=== PATIENT | male | born 1945 | race Caucasian/White ===

== ENCOUNTER 2017-02-02 02:44 | Emergency (ER) | payer MEDICARE, BC ==
--- NOTE | ~2017-02-02 | EKG ---
PATIENT: ALFONZO GAYLE UNIT #: [id number] Ventricular Rate: 91 BPM Atrial Rate: 91 BPM P-R Interval: 164 ms QRS Duration: 100 ms Q-T Interval: 384 ms QTC Calculation(Bezet): 472 ms P [place]: 74 degrees Calculated R [place]: 74 degrees Calculated T [place]: 145 degrees Diagnosis Line: Sinus rhythm with frequent Premature ventricular Diagnosis Line: complexes Diagnosis Line: T wave abnormality, consider inferolateral Diagnosis Line: ischemia Diagnosis Line: Prolonged QT Diagnosis Line: Abnormal ECG Diagnosis Line: No previous ECGs available Diagnosis Line: Confirmed by ZULEMA GAMBOA MD ([id number]) on 02/02/2017 Diagnosis Line: 9:43:37 AM INTERPRETING MD: COOPER MATTA
--- NOTE | ~2017-02-02 | CR72 ---
[facility] A Service of [facility] RADIOLOGY TEXT RESULTS PATIENT: ALFONZO GAYLE LOCATION: [facility] : 47 UNIT #: [id number] AGE: [address]: Marcus Espitia MD SEX: M ORDER DR: [id number] [facility] [address] [facility]. [place], [place] [address] [id number] MR#: [id number] #: [id number] NAME: ALFONZO GAYLE. : 1945 SEX: M STUDY DATE/TIME: 02/02/2017 2:32 UNIT: [facility] ROOM: STUDY DESCRIPTION: CR Chest Single View Portable Attending Physician: Marcus Espitia M.D. Ordering Physician: Marcus Espitia M.D. Primary Care Physician: Abel Yip M.D. MEDICAL IMAGING REPORT This report is preliminary unless electronic signature is present EXAM AP portable chest. DATE 02/02/2017 HISTORY 71-year-old male with shortness breath for 1 day. Previous history of lung surgery. CABG. COMPARISON AP portable chest, 02/09/2016. FINDINGS Chronic volume loss right in the right hemithorax. Chronic blunting of the right costophrenic angle may represent pleural change or small pleural effusion. Stable asymmetric elevation right hemidiaphragm. Heart size is mildly enlarged but stable with signs of median sternotomy and CABG. Old left sixth rib fracture. Suspected mild peribronchiolar opacities in the bilateral lower lung zones may represent changes of small airways infectious-inflammatory process. IMPRESSION 1. Peribronchiolar opacities and peribronchiolar thickening in the lower lung zones may represent changes of small airways infectious-inflammatory process. No dense lung consolidations are identified. 2. Chronic volume loss in the right hemithorax unchanged. 3. Stable cardiomegaly with CABG. Dictated by... [facility] A Service of [facility] RADIOLOGY TEXT RESULTS PATIENT: ALFONZO GAYLE LOCATION: [facility] : 46 UNIT #: [id number] AGE: [address]: Marcus Espitia MD SEX: M ORDER DR: Cari Miranda M.D. THIS IS AN ELECTRONICALLY VERIFIED REPORT Cari Miranda M.D. at 02/02/2017 10:04 PM KE/franck TD: 02/02/2017 09:32 JOB #: [id number] MEDICAL IMAGING REPORT Page 1 of 1 COPY
[2017-02-02 02:20] LABS: BASOPHIL# 0.1 X10e3 (0-0.3); BASOPHIL% 0.7 % (0-2.5); DIFF IND NO; EOSINOPHIL# 0.4 X10e3 (0-0.7); EOSINOPHIL% 3.8 % (0.0-7.0); HEMATOCRIT 35.2 % (38.0-50.0); HEMOGLOBIN 11.6 gm/dL (13.0-16.0); LYMPHOCYTE# 1.7 X10e3 (1.0-3.5); LYMPHOCYTE% 14.6 % (17.0-45.0); MEAN CELL VOLUME 86.4 FL (83-96); MEAN CORPUSCULAR HEMOGLOBIN 28.5 PG (28-34); MEAN PLATELET VOLUME 7.6 FL (6.5-11.5); MONOCYTE# 0.7 X10e3 (0-1.0); MONOCYTE% 6.1 % (3.0-12.0); NEUTROPHIL# 8.6 X10e3 (1.5-7.1); NEUTROPHIL% 74.8 % (40-75); PLATELET COUNT 356 X10e3 (140-420); RED BLOOD COUNT 4.07 X10e (3.90-5.60); WHITE BLOOD COUNT 11.5 X10e3 (4.0-10.5)
[2017-02-02 02:26] LABS: POC - CKMB 1.4 ng/mL (0.0-7.9); POC - TROPONIN <0.05 ng/mL (<=0.05)
[2017-02-02 02:40] LABS: ALBUMIN SERUM 3.1 g/dL (3.5-5.0); BILIRUBIN, DIRECT 0.1 mg/dL (0.0-0.2); BILIRUBIN,INDIRECT 0.4 mg/dL (0.0-0.9); BILIRUBIN,TOTAL 0.5 mg/dL (0.2-2.0); BUN/CREATININE RATIO 9.23; CALCIUM SERUM 8.3 mg/dL (8.4-10.2); CREATININE SERUM 1.3 mg/dL (0.6-1.4); GLOM FILT RATE Estimated 55.3 mL/min (>60); POTASSIUM 3.2 mmol/L (3.5-5.1); PROTEIN TOTAL SERUM 6.8 g/dL (6.0-8.3)
[~2017-02-02 02:44] MED LIST: AMBIEN; AMLODIPINE BESYL5 MG PO; APRESOLINE PO; ASPIRIN PO; ASPIRIN81 MG PO; ASPIRINBUFF PO; ASTEPRO205.5 MCG/ NS; ATENOLOL PO; BREO ELLIPTA I1 EACH IH; BUSPAR15 M1 PO; BUSPAR15 M2 PO; BUSPAR15 M3 PO; CARDURA2 MG PO; CLONIDINE HCL0.1 MG PO; CLOPIDOGREL BIS75 MG PO; CLOPIDOGREL75 MG PO; CO Q10 PO; COLACE PO; COMPLETE ALLERG50 MG PO; DEXAMETHASONE1 MG PO; DRONABINOL2.5 MG PO; DULCOLAX5 MG RC; FISH OIL 1,2001 CAP PO; FLOMAX0.4 M1 PO; FLONASE 0.05% N16 G1; FLONASE ALLERG9.9 ML; FUROSEMIDE40 MG PO; HUMIBID-LA600 MG; HYDRALAZINE HC100 MG PO; HYDROCHLOROTHIA25 MG PO; IMDUR PO; LASIX20 MG PO; LIPITOR40 MG PO; LIPITOR80 MG PO; LISINOPRIL PO; LOPRESSOR PO; LOW DOSE ASPIRI81 M1 PO; LUNESTA PO; LUTEIN PO; LUTEIN20 M1 PO; LUTEIN20 MG PO; METOPROLOL SUC100 MG PO; METOPROLOL TAR25 MG PO; MIRTAZAPINE7.5 MG PO; NASONEX17 GM; NEXIUM PO; NITROGLYCERIN; NITROGYLCERIN SUBLINGUAL; NITROLINGUAL12 G1; NORVASC PO; PERFOROMIS20 MCG/2 M NEB; PLAVIX PO; PROTONIX PO; PROVENTIL INH0.5 ML HHN; PULMICORT0.5 MG/2 M NEB; QUETIAPINE FUMA50 MG PO; RELAFEN500 MG PO; REMERON15 MG PO; SIMVASTATIN20 MG PO; STAHIST TA1 TAB.SR . PO; SUDOGEST60 MG PO; TEMAZEPAM30 MG PO; TOPROL XL PO; TRAZODONE PO; TYLENOL325 M1 PO; VISTARIL PO; VITAL-D RX TABL1 TAB PO; VITAMIN D31000 UNIT PO; ZOCOR PO; ZYRTEC PO; [UNRECOGNIZED DRUG - OTHER] SL
[2017-02-02] MEDS ORDERED: LORCET 5-325 M1 EACH PO (02:45)
== END 2017-02-02 03:21 | disposition home or self-care (01) ==
LOC: CED 02:44
PROVIDERS: Emergency Medicine
DX: J44.1 Chronic obstructive pulmonary disease with (acute) exacerbation (principal); J20.9 Acute bronchitis, unspecified; J44.0 Chronic obstructive pulmonary disease with (acute) lower respiratory infection; I13.0 Hypertensive heart and chronic kidney disease with heart failure and stage 1 through stage 4 chronic kidney disease, or unspecified chronic kidney disease; N18.9 Chronic kidney disease, unspecified; I50.9 Heart failure, unspecified; E78.5 Hyperlipidemia, unspecified; F03.90 Unspecified dementia, unspecified severity, without behavioral disturbance, psychotic disturbance, mood disturbance, and anxiety; F32.9 Major depressive disorder, single episode, unspecified; Z95.1 Presence of aortocoronary bypass graft; Z79.82 Long term (current) use of aspirin; Z79.899 Other long term (current) drug therapy
CPT/HCPCS: 36415; 71010; 80048; 80076; 82553; 83880; 84484; 85025; 93005; 94640; 99284

== ENCOUNTER 2017-02-13 07:14 | Inpatient (IN) | payer MEDICARE, BC ==
--- NOTE | ~2017-02-13 | CR72 ---
[facility] A Service of [facility] & [facility] RADIOLOGY TEXT RESULTS PATIENT: ALFONZO GAYLE LOCATION: [facility] 550-01 : 46 UNIT #: [id number] AGE: [address]: ANANDA YUSUF MD SEX: M ORDER DR: [id number] [facility] [address] [facility]. [place], [place] [address] [id number] I MR#: [id number] #: [id number] NAME: ALFONZO GAYLE. : 1945 SEX: M STUDY DATE/TIME: 02/13/2017 8:11 UNIT: [facility] ROOM: [facility] STUDY DESCRIPTION: CR Chest Single View Portable Attending Physician: Ananda Yusuf M.D. Ordering Physician: Jung Gilliland M.D. Primary Care Physician: Abel Yip M.D. MEDICAL IMAGING REPORT This report is preliminary unless electronic signature is present EXAM Portable chest INDICATION Shortness of breath today. Compared with 02/02/2017. FINDINGS Stable postoperative changes of the right lung. Stable right pleural effusion. Stable background interstitial opacities. No new infiltrate. Heart size stable. IMPRESSION No significant change in the appearance of the chest. Stable postoperative changes of the right lung, right pleural effusion and bilateral interstitial opacities. Dictated by... Roger Briggs M.D. THIS IS AN ELECTRONICALLY VERIFIED REPORT Roger Briggs M.D. at 02/14/2017 2:19 PM MELVI/tootie TD: 02/13/2017 22:33 JOB #: [id number] MEDICAL IMAGING REPORT Page 1 of 1 COPY
--- NOTE | ~2017-02-13 | HP ---
Unit #: [id number] #: [id number] Patient: ALFONZO GAYLE [id number] [facility]. [place], [place] [address] [id number] I MR#: [id number] NAME: ALFONZO GAYLE. ROOM: 550 Age: 71 Sex: M Admission Date: 02/13/2017 : 1945 Attending Physician: Mayi Yusuf M.D. Primary Care Physician: Abel Yip M.D. HISTORY AND PHYSICAL REVISED REPORT CHIEF COMPLAINT Shortness of breath. HISTORY OF PRESENT ILLNESS The patient is a 71-year-old male with history of coronary artery disease status post OK 4 years ago, lung cancer and hypertension. Brought to the emergency room with shortness of breath. The patient stated that he had chest pain earlier this morning that lasted 2-3 minutes. The pain was sharp and followed by achiness. That made the patient come to the hospital. The patient was scared that he might have another heart attack. The patient was also found to have shortness of breath and is being admitted for the above reasons. The patient was found to have a blood pressure in the range of 200/82 and started on nitro paste and received labetalol 10 mg IV x1 in the emergency room. The patient is being admitted for the above reasons. PAST MEDICAL HISTORY History of coronary artery disease with previous anterolateral OK in 2008, followed by 2-vessel CABG with an EF of 10% to 15%, hypertension, hyperlipidemia, non-small cell lung cancer status post right VATS, right lower and right middle lobe along with lymph node dissection, hyperlipidemia, history of iron deficiency anemia, COPD, history of chronic kidney disease. ALLERGIES None. HOME MEDICATIONS The patient had been out of medications for a couple of weeks. He is on Metoprolol, Norvasc, aspirin, lutein, Plavix, Seroquel, simvastatin, Flomax, and [place]. FAMILY HISTORY Positive for coronary artery disease. SOCIAL HISTORY The patient lives with his . He stopped smoking in 2009 and does not drink alcohol. REVIEW OF SYSTEMS A 14-point review of systems was performed, and all the pertinent positive findings are as described above. The remaining are negative. Unit #: [id number] #: [id number] Patient: ALFONZO GAYLE PHYSICAL EXAMINATION GENERAL: The patient is lying in the bed, not in acute distress. VITALS: Temperature is 98, pulse 85, respiratory rate 20, blood pressure 200/82, satting 97% on room air. HEENT: Head atraumatic, normocephalic. Pupils are equal, round, reactive to light and accommodation. Extraocular movements are intact. NECK: Supple. LUNGS: Decreased air entry at the bases. HEART: Regular rate and rhythm. Positive for murmur. ABDOMEN: Soft. Positive bowel sounds. EXTREMITIES: No cyanosis. No clubbing. NEUROLOGIC: Alert, awake, oriented. No gross focal motor deficit. DIAGNOSTIC STUDIES IMAGING: Chest x-ray shows no acute changes. LAB DATA: Glucose 92, BUN 14, creatinine 1.1, sodium 136, potassium 3.9, chloride 103, bicarb 25, calcium 8.5, total protein 6.8, albumin 3.1, total bili 0.6, AST 16, ALT 10, alkaline phosphatase 87. CK total is 32, CK-MB is 5, troponin is 0.07. BNP is 784. WBC 10.1, hemoglobin 11.1, hematocrit 34, platelets 355. UA shows 3+ protein. CARDIOVASCULAR: EKG shows sinus rhythm with occasional PVCs, left posterior fascicular block and rate of 87 beats per minute, QTc 486. ASSESSMENT 1. Chest pain. 2. Elevated troponin with non-ST elevation OK. 3. Chronic combined systolic and diastolic heart failure. 4. A fib. PLAN Plan to admit the patient to inpatient. The patient had Lexiscan Cardiolite back in 2014 at [facility] that was negative. Patient will have a cardiology consultation for non-ST elevation OK and chest pain with angina. Resume the Lasix 40 mg and resume the blood pressure medications, Metoprolol, lisinopril, aspirin and Lipitor, and further recommendations to follow as more lab results are available. *REPORT FAXED TO DR. YUSUF'S OFFICE ON 02/14/17 FOR MEDICATION VERIFICATION. CD Dictated by Jabari Villatoro/chio TD: 02/14/2017 07:26 JOB #: [id number] Unit #: [id number] #: [id number] Patient: ALFONZO GAYLE HISTORY AND PHYSICAL Page 1 of 1 X X HISTORY AND PHYSICAL
--- NOTE | ~2017-02-13 | DS ---
Unit #: [id number] #: [id number] Patient: ALFONZO GAYLE [id number] [address] [address] [id number] I MR#: [id number] NAME: ALFONZO GAYLE. ROOM: 550 Age: 71 Sex: M Admission Date: 02/13/2017 : 1945 Discharge Date: Attending Physician: Iram Gunderson M.D. Primary Care Physician: Abel Yip M.D. DISCHARGE SUMMARY DISCHARGE DIAGNOSES 1. Acute on chronic systolic heart failure. 2. Acute kidney injury. 3. Chronic kidney disease, stage 2 likely. 4. Coronary artery disease with multivessel disease status post cardiac cath. 5. Chest pain with ST-T wave changes, likely secondary to left ventricular hypertrophy. 6. Non-ST elevation myocardial infarction. 7. Chronic obstructive pulmonary disease. 8. History of non-small cell lung cancer status post lung surgery. 9. Hyperlipidemia. 10. History of iron deficiency anemia. 11. Ejection fraction 10% to 15%. 12. Hypertension. CONSULTATIONS Dr. Way. PROCEDURES Cardiac cath, which showed multivessel disease. No stents placed. ALLERGIES None. DISCHARGE MEDICATIONS 1. Metoprolol 50 p.o. b.i.d. 2. Lasix 40 daily. 3. Lisinopril 20 daily. 4. Aspirin 81 daily. 5. Spironolactone 25 mg 1/2 tablet p.o. daily. 6. Imdur ER 60 daily. HOSPITALIZATION COURSE A 71 year old admitted because of chest pain. Chest pain. Non-ST elevation AL with LVH and S-T wave changes. The patient had a cardiac cath, which showed multivessel disease. Patient did not have any stents placed. If patient has symptoms like angina, he might be needing stent. Currently patient is on medical management. Continue with aspirin, Lipitor, lisinopril, Metoprolol and Imdur. Acute on chronic systolic heart failure. Patient received IV Lasix. Currently compensated. Continue with p.o. Lasix. Unit #: [id number] #: [id number] Patient: ALFONZO GAYLE Acute kidney injury with a history of chronic kidney disease stage 2 likely. Currently creatinine is 1.7. I am going to decrease his Lasix, spironolactone and lisinopril. He needs to have a BMP checked on 02/21/2017 Follow with PCP with results. I am going to have home health for it. History of lung cancer. Stable. COPD. Stable. History of dementia with behavioral issues in the past. Currently stable. DISCHARGE PLAN 1. The patient's family wants him to go to rehab, but physical therapy saw him and they said currently the patient is baseline, so patient will be going home with home health. 2. Follow with family physician in 1 week. 3. BMP on 02/21/2017. Follow with PCP with results. 4. Discussed with Dr. Way regarding the increasing creatinine. According to him, doses of Lasix, spironolactone and lisinopril to be decreased and BMP to be checked on 02/21/2017 and follow with PCP with results. Patient does not need to be inpatient. NOTE: Discharge time taken is 35 minutes. Dictated by... Iram Gunderson M.D. KASI/chio TD: 02/17/2017 13:59 JOB #: [id number] DISCHARGE SUMMARY Page 1 of 1 X Iram Gunderson MD X DISCHARGE SUMMARY
--- NOTE | ~2017-02-13 | EKG ---
PATIENT: ALFONZO GAYLE UNIT #: [id number] Ventricular Rate: 87 BPM Atrial Rate: 87 BPM P-R Interval: 162 ms QRS Duration: 98 ms Q-T Interval: 404 ms QTC Calculation(Bezet): 486 ms P [place]: 81 degrees Calculated R [place]: 111 degrees Calculated T [place]: -92 degrees Diagnosis Line: Sinus rhythm with occasional Premature ventricular Diagnosis Line: complexes Diagnosis Line: Left posterior fascicular block Diagnosis Line: ST and T wave abnormality, consider inferolateral Diagnosis Line: ischemia Diagnosis Line: Prolonged QT Diagnosis Line: Abnormal ECG Diagnosis Line: When compared with ECG of 02-FEB-2017 02:08, Diagnosis Line: Left posterior fascicular block is now Present Diagnosis Line: T wave inversion more evident in Inferior leads Diagnosis Line: T wave inversion less evident in Lateral leads Diagnosis Line: Confirmed by KATTY CHARLES MD ([id number]) on Diagnosis Line: 02/14/2017 8:36:59 AM INTERPRETING MD: ARACELI MATTA
--- NOTE | ~2017-02-13 | CO ---
Unit #: [id number] #: [id number] Patient: ALFONZO GAYLE [id number] [facility]. [place], [place] [address] [id number] I MR#: [id number] NAME: ALFONZO GAYEL ROOM: 550 Age: 71 Sex: M Admission Date: 02/13/2017 : 1945 Attending Physician: Iram Gunderson M.D. Primary Care Physician: Abel Yip M.D. Consultation Date: 02/13/2017 CONSULTATION REPORT REASON FOR CONSULTATION Shortness of breath. HISTORY OF PRESENT ILLNESS This is a 71-year-old white male, previously known to our group with a past medical history of coronary artery disease with previous myocardial infarction, status post coronary artery bypass grafting x2 vessels in 2008. At that time, the patient's ejection fraction was 10% to 15%. He underwent a 2D echocardiogram in 07/2013, which revealed an improved ejection fraction of 50% to 55%, followed by 2D echocardiogram in 01/2015 with an ejection fraction of 50%. Lexiscan Cardiolite stress test was completed in 01/2015, at [facility], [place] and was normal. Additional past medical history includes hypertension, hyperlipidemia, chronic kidney disease stage 3, COPD, and squamous cell carcinoma status post right lower lobe resection and VATS. The patient was previously admitted to [facility] and was seen by Cardiology in 04/2015 for atrial fibrillation with rapid ventricular response. He presented to the emergency department today with complaints of shortness of breath and anxiety for past one day. He states that he was at home watching TV when he became very short of breath and had some pain in his midsternal chest. The pain was described as shortness and an aching pain. There was some radiation. It was worse with movement. He denies diaphoresis, nausea, or vomiting. Denies dizziness, palpitations, or syncope. There are no reports of lower extremity edema. He did state that he was run out of his medications and has been without all medicines for about 10 days. He said that his stepdaughter works 2 jobs and he did not want to trouble her, and therefore, has not been able to get to the pharmacy. In the emergency department, initial creatinine was 1.1 with a BUN of 14. BNP was 784. Chest x-ray revealed right pleural effusion as well as some vascular congestion. Initial cardiac enzymes were negative. EKG revealed sinus rhythm with T-wave inversion in the inferior and anterolateral leads likely from hypertension. He was admitted for further observation. Cardiology was consulted. The patient is somewhat of a decent historian, but is inconsistent with his story. There is a documented history of dementia. We will attempt to reach his family to discuss plan of care. PAST MEDICAL HISTORY 1. Coronary artery disease, myocardial infarction, status post coronary artery bypass grafting x2 in 2008. Ejection fraction 10% to 15%. 2. 2D echocardiogram on 07/14/2013 revealed impaired LV relaxation. Ejection fraction 50% to 55%. Unit #: [id number] #: [id number] Patient: ALFONZO GAYLE 3. Lexiscan Cardiolite stress test in 01/2015 at [facility] [place] was revealed no ischemia. Ejection fraction 50%. 4. 2D echocardiogram in 01/2015 revealed an ejection fraction of 50%. Mild aortic stenosis. Mild aortic regurgitation. Trace to mild mitral regurgitation. 5. Hypertension. 6. Hyperlipidemia. 7. Chronic kidney disease, stage 3. 8. COPD. 9. Squamous cell carcinoma, status post right lower lobe resection and VATS. 10. Atrial fibrillation with rapid ventricular response diagnosed in 04/2015, now in sinus rhythm. 11. Dementia. 12. Reformed tobacco abuse. PAST SURGICAL HISTORY 1. Coronary artery bypass grafting. 2. Cardiac catheterization. 3. Cataract extraction. 4. VATS and right lower lobe lung resection. HOME MEDICATIONS The patient has been off all medications for the last 10 days due to running out of his prescriptions. ALLERGIES No known drug allergies. SOCIAL HISTORY The patient lives in a private residence. He is a reformed smoker. There are no reports of alcohol or illicit drug use. FAMILY HISTORY Contributory for heart disease. REVIEW OF SYSTEMS Ten-point review of systems negative except for details noted above in HPI. PHYSICAL EXAMINATION VITAL SIGNS: Temperature 98, pulse 97, blood pressure 171/92. CONSTITUTIONAL: This is a 71-year-old white male, in no acute distress. SKIN: Warm and dry. NECK: Supple. No jugular vein distention. No hepatojugular reflux. Normal carotid upstrokes. No carotid bruits auscultated. HEART: S1 and S2. Regular rate and rhythm. No murmurs, rubs, or gallops. LUNGS: There are fine rales in the left lung. Decreased breath sounds in the right base. Respirations are even and nonlabored. ABDOMEN: Soft, nontender, and nondistended. Positive bowel sounds auscultated x4 quadrants. No ascites noted. EXTREMITIES: Bilateral lower extremities have trace pretibial pitting edema. DP and PT pulses are 2+. Capillary refill is less than 2 seconds. DIAGNOSTIC STUDIES LABORATORY RESULTS: White blood cell count 10.1, hemoglobin 11.1, hematocrit 34, platelets 355. Sodium 136, potassium 3.9, chloride 103, CO2 of 25, BUN 14, creatinine 1.1, glucose 92. AST 16, ALT 10, alkaline Unit #: [id number] #: [id number] Patient: ALFONZO GAYLE phosphatase 87. BNP 784. Troponin 0.05. Urinalysis with 3+ protein. IMAGING STUDIES: Chest x-ray reveals atelectasis with possible right pleural effusion. Vascular congestion. CT of the head reveals no acute findings. CARDIOVASCULAR STUDIES: EKG reveals sinus rhythm with T-wave inversion in the inferior and anterolateral leads. QTc 486 msec. IMPRESSION 1. Acute on chronic diastolic congestive heart failure with an ejection fraction of 50% in 01/2015. 2. Squamous cell carcinoma, status post video-assisted thoracic surgery and right lower lobe lung resection. 3. Coronary artery disease with history of coronary artery bypass grafting in 2008. 4. History of ischemic cardiomyopathy, now improved. 5. Hypertension. 6. Hyperlipidemia. 7. Chronic obstructive pulmonary disease. 8. Chronic kidney disease, stage 3. 9. Dementia. 10. History of atrial fibrillation with rapid ventricular response, now sinus rhythm. 11. Medical non-adherence. PLAN 1. The patient will be admitted to the hospital for further observation. 2. We will restart Lasix, lisinopril, aspirin, and statin. 3. We will check a TSH and fasting lipid profile. 4. The patient was started on fluid restriction, strict intake and output. 5. He admits to some chest pain. EKG is nonacute. We will trend EKG and cardiac enzymes. Dictated by... Génesis Salvador APRN for Jabari Pretty/kelvin TD: 02/15/2017 01:14 JOB #: [id number] CONSULTATION REPORT Page 1 of 1 X X CONSULTATION REPORT
[~2017-02-13 07:14] MED LIST changes: +LORCET 5-325 M1 EACH PO
[2017-02-13 08:15] LABS: POC - TROPONIN <0.05 ng/mL (<=0.05)
[2017-02-13 08:21] LABS: BASOPHIL# 0.1 X10e3 (0-0.3); DIFF IND NO; EOSINOPHIL# 0.4 X10e3 (0-0.7); EOSINOPHIL% 3.8 % (0.0-7.0); HEMOGLOBIN 11.1 gm/dL (13.0-16.0); LYMPHOCYTE# 1.6 X10e3 (1.0-3.5); LYMPHOCYTE% 15.5 % (17.0-45.0); MEAN CELL VOLUME 88.1 FL (83-96); MEAN CORPUSCULAR HEMOGLOBIN 28.8 PG (28-34); MEAN CORPUSCULAR HGB CONC 32.7 g/dL (30-36); MEAN PLATELET VOLUME 8.2 FL (6.5-11.5); MONOCYTE# 0.7 X10e3 (0-1.0); MONOCYTE% 7.3 % (3.0-12.0); NEUTROPHIL# 7.3 X10e3 (1.5-7.1); NEUTROPHIL% 72.4 % (40-75); PLATELET COUNT 355 X10e3 (140-420); RED BLOOD COUNT 3.86 X10e (3.90-5.60); RED CELL DISTRIBUTION WIDTH 15.2 % (11.0-15.5); WHITE BLOOD COUNT 10.1 X10e3 (4.0-10.5)
[2017-02-13 08:48] LABS: URINE SOURCE CLEAN CATCH
[2017-02-13 08:55] LABS: URINE APPEARANCE CLEAR; URINE BILIRUBIN NEG (NEG); URINE BLOOD TRACE (NEG); URINE COLOR YELLOW; URINE GLUCOSE NEG (NEG); URINE KETONE NEG (NEG); URINE LEUKOCYTE ESTERASE NEG (NEG); URINE NITRATE NEG (NEG); URINE PH 6.5 (5-8); URINE PROTEIN 3+ (NEG); URINE SPECIFIC GRAVITY 1.012 (1.003-1.035)
[2017-02-13 08:58] LABS: URINE BACTERIA AUWI NEG (NEGATIVE); URINE SQUAMOUS EPITHELIAL CELL NONE SEEN /[HPF]; UWBCS1 AUWI 0-2 (0-5)
[2017-02-13 08:59] LABS: ALBUMIN SERUM 3.1 g/dL (3.5-5.0); ALKALINE PHOSPHATASE 87 U/L (32-92); ALT (SGPT) 10 U/L (10-40); AST (SGOT) 16 U/L (10-42); BILIRUBIN,TOTAL 0.6 mg/dL (0.2-2.0); BLOOD UREA NITROGEN 14 mg/dL (9-23); BUN/CREATININE RATIO 12.72; CALCIUM SERUM 8.5 mg/dL (8.4-10.2); CARBON DIOXIDE 25 mmol/L (22-31); CHLORIDE 103 mmol/L (100-111); CREATININE SERUM 1.1 mg/dL (0.6-1.4); GLOM FILT RATE Estimated 67.7 mL/min (>60); GLUCOSE FASTING 92 mg/dL (70-110); POTASSIUM 3.9 mmol/L (3.5-5.1); PROTEIN TOTAL SERUM 6.8 g/dL (6.0-8.3); SODIUM 136 mmol/L (135-145)
[2017-02-13 08:59] LABS: CULTURE INDICATED? NO
[2017-02-13 09:00] LABS: BILIRUBIN, DIRECT <0.1 mg/dL (0.0-0.2); BILIRUBIN,INDIRECT 0.5 mg/dL (0.0-0.9)
[2017-02-13 09:44] LABS: POC - CKMB 1.5 ng/mL (0.0-7.9); POC - TROPONIN <0.05 ng/mL (<=0.05)
[2017-02-13] MEDS ORDERED: PATIENT'S PHARMACY (09:55)
[2017-02-13] MEDS ORDERED: NO MEDICATIONS (09:55)
[2017-02-13 18:26] LABS: CK TOTAL 32 IU/L (36-174)
[2017-02-14 01:55] LABS: BASOPHIL% 0.3 % (0-2.5); EOSINOPHIL# 0.4 X10e3 (0-0.7); EOSINOPHIL% 3.7 % (0.0-7.0); HEMATOCRIT 34.9 % (38.0-50.0); HEMOGLOBIN 11.4 gm/dL (13.0-16.0); LYMPHOCYTE# 2.3 X10e3 (1.0-3.5); LYMPHOCYTE% 21.4 % (17.0-45.0); MEAN CELL VOLUME 87.8 FL (83-96); MEAN CORPUSCULAR HEMOGLOBIN 28.8 PG (28-34); MEAN CORPUSCULAR HGB CONC 32.8 g/dL (30-36); MONOCYTE# 0.8 X10e3 (0-1.0); MONOCYTE% 7.8 % (3.0-12.0); NEUTROPHIL# 7.2 X10e3 (1.5-7.1); NEUTROPHIL% 66.8 % (40-75); PLATELET COUNT 421 X10e3 (140-420); RED BLOOD COUNT 3.97 X10e (3.90-5.60); RED CELL DISTRIBUTION WIDTH 14.7 % (11.0-15.5); WHITE BLOOD COUNT 10.7 X10e3 (4.0-10.5)
[2017-02-14 01:56] LABS: DIFF IND NO
[2017-02-14 02:08] LABS: CK TOTAL 28 IU/L (36-174)
[2017-02-14 02:23] LABS: CALCIUM SERUM 8.9 mg/dL (8.4-10.2); CREATININE SERUM 1.4 mg/dL (0.6-1.4); GLOM FILT RATE Estimated 50.6 mL/min (>60); POTASSIUM 4.2 mmol/L (3.5-5.1)
[2017-02-15 06:19] LABS: HEMATOCRIT 35.6 % (38.0-50.0); HEMOGLOBIN 11.7 gm/dL (13.0-16.0); MEAN CELL VOLUME 86.5 FL (83-96); MEAN CORPUSCULAR HEMOGLOBIN 28.5 PG (28-34); MEAN CORPUSCULAR HGB CONC 32.9 g/dL (30-36); MEAN PLATELET VOLUME 7.8 FL (6.5-11.5); RED BLOOD COUNT 4.11 X10e (3.90-5.60); RED CELL DISTRIBUTION WIDTH 14.4 % (11.0-15.5)
[2017-02-15 07:25] LABS: BILIRUBIN,TOTAL 0.6 mg/dL (0.2-2.0); BUN/CREATININE RATIO 22.66; CALCIUM SERUM 9.1 mg/dL (8.4-10.2); CREATININE SERUM 1.5 mg/dL (0.6-1.4); GLOM FILT RATE Estimated 46.5 mL/min (>60); POTASSIUM 4.2 mmol/L (3.5-5.1); PROTEIN TOTAL SERUM 6.6 g/dL (6.0-8.3)
[2017-02-16 05:56] LABS: HEMOGLOBIN 11.5 gm/dL (13.0-16.0); MEAN CORPUSCULAR HEMOGLOBIN 28.6 PG (28-34); MEAN CORPUSCULAR HGB CONC 32.9 g/dL (30-36); MEAN PLATELET VOLUME 8.4 FL (6.5-11.5); RED BLOOD COUNT 4.02 X10e (3.90-5.60); RED CELL DISTRIBUTION WIDTH 15.1 % (11.0-15.5); WHITE BLOOD COUNT 12.5 X10e3 (4.0-10.5)
[2017-02-16 06:39] LABS: BILIRUBIN,TOTAL 0.4 mg/dL (0.2-2.0); CALCIUM SERUM 8.9 mg/dL (8.4-10.2); CREATININE SERUM 1.5 mg/dL (0.6-1.4); GLOM FILT RATE Estimated 46.5 mL/min (>60); MAGNESIUM 1.7 mg/dL (1.6-3.0); PHOSPHOROUS 4.2 mg/dL (2.5-4.6); POTASSIUM 4.1 mmol/L (3.5-5.1); PROTEIN TOTAL SERUM 6.4 g/dL (6.0-8.3)
[2017-02-17 06:13] LABS: HEMATOCRIT 32.6 % (38.0-50.0); HEMOGLOBIN 10.6 gm/dL (13.0-16.0); MEAN CELL VOLUME 87.8 FL (83-96); MEAN CORPUSCULAR HEMOGLOBIN 28.4 PG (28-34); MEAN CORPUSCULAR HGB CONC 32.4 g/dL (30-36); MEAN PLATELET VOLUME 8.2 FL (6.5-11.5); RED BLOOD COUNT 3.72 X10e (3.90-5.60); WHITE BLOOD COUNT 11.2 X10e3 (4.0-10.5)
[2017-02-17 08:00] LABS: BUN/CREATININE RATIO 27.05; CALCIUM SERUM 8.9 mg/dL (8.4-10.2); CREATININE SERUM 1.7 mg/dL (0.6-1.4); POTASSIUM 4.3 mmol/L (3.5-5.1)
[2017-02-17] MEDS ORDERED: LIPITOR40 MG PO (14:01)
[2017-02-17] MEDS ORDERED: LOPRESSOR PO (14:01)
[2017-02-17] MEDS ORDERED: LASIX PO (14:01)
[2017-02-17] MEDS ORDERED: ASPIRIN81 M2 PO (14:02)
[2017-02-17] MEDS ORDERED: LISINOPRIL20 MG PO (14:02)
[2017-02-17] MEDS ORDERED: IMDUR-ER60 M1 PO (14:03)
[2017-02-17] MEDS ORDERED: ALDACTONE PO (14:03)
== END 2017-02-17 17:25 | disposition home health service (06) | DRG 280 ==
LOC: CED 07:14 → C5B 09:57 → CEDOF 09:57 → C5B 09:57 → CEDOF 17:46 → C5B 17:46 → CEDOF 18:50 → C5B 02-15 09:33
PROVIDERS: Emergency Medicine; Internal Medicine; Nurse Practitioner Family
DX: I21.4 Non-ST elevation (NSTEMI) myocardial infarction (principal); I50.43 Acute on chronic combined systolic (congestive) and diastolic (congestive) heart failure; N17.9 Acute kidney failure, unspecified; I13.0 Hypertensive heart and chronic kidney disease with heart failure and stage 1 through stage 4 chronic kidney disease, or unspecified chronic kidney disease; J44.1 Chronic obstructive pulmonary disease with (acute) exacerbation; N18.2 Chronic kidney disease, stage 2 (mild); I25.10 Atherosclerotic heart disease of native coronary artery without angina pectoris; Z95.1 Presence of aortocoronary bypass graft; I25.2 Old myocardial infarction; E78.5 Hyperlipidemia, unspecified; I48.91 Unspecified atrial fibrillation; F03.90 Unspecified dementia, unspecified severity, without behavioral disturbance, psychotic disturbance, mood disturbance, and anxiety; Z87.891 Personal history of nicotine dependence; Z98.49 Cataract extraction status, unspecified eye; Z82.49 Family history of ischemic heart disease and other diseases of the circulatory system; I25.5 Ischemic cardiomyopathy; Z85.118 Personal history of other malignant neoplasm of bronchus and lung; D50.9 Iron deficiency anemia, unspecified; Z79.02 Long term (current) use of antithrombotics/antiplatelets; Z79.82 Long term (current) use of aspirin; I27.2 Other secondary pulmonary hypertension; I34.0 Nonrheumatic mitral (valve) insufficiency
CPT/HCPCS: 70450; 71010; 80048; 80053; 80061; 80076; 81003; 82550; 82553; 83735; 83880; 84100; 84443; 84484; 85025; 85027; 93005; 93306; 94640; 94760; 97116; 97162; 97166; 99285; C1769; C1887; C1894; G8987-GO; G8988-GO; G8989-GO; G8990-GP; G8991-GP; J1644; J1940; J2250; J3010

== ENCOUNTER → 2017-02-23 | Outpatient (CLI) | payer MEDICARE, BC ==
[~2017-02-23] MED LIST changes: +ALDACTONE PO; +ASPIRIN81 M2 PO; +IMDUR-ER60 M1 PO; +LASIX PO; +LISINOPRIL20 MG PO; +NO MEDICATIONS; +PATIENT'S PHARMACY
[2017-02-23 14:38] LABS: BUN/CREATININE RATIO 18.75; CALCIUM SERUM 9.2 mg/dL (8.4-10.2); CREATININE SERUM 1.6 mg/dL (0.6-1.4); POTASSIUM 5.1 mmol/L (3.5-5.1)
== END | disposition home or self-care (01) ==
LOC: CLAB 13:02
PROVIDERS: Internal Medicine
DX: N18.2 Chronic kidney disease, stage 2 (mild) (principal)
CPT/HCPCS: 36415; 80048